=== PATIENT | male | born 1975 | race Caucasian/White ===

== ENCOUNTER 2017-04-06 20:22 | Inpatient (IN) | payer OTHER ==
[~2017-04-06] VITALS: Ht 180.3 cm; Wt 81.3 kg
--- NOTE | 2017-04-06 20:50 | NUR ---
PT BIB [facility] WITH A "HIGH" SUGAR. PT IS AMBULATORY AND AA&OX 4. PT IS ON THE MONITOR AND CONTINUOUS PULSE OX. VSS. M DEGRASSE, ACNP-BC IS AT THE BEDSIDE.
--- NOTE | 2017-04-06 20:59 | NUR ---
CALLED RT FOR ABG
--- NOTE | 2017-04-06 21:05 | NUR ---
M DEGRASSE, ACNP IS AT THE BEDSIDE.
--- NOTE | 2017-04-06 21:05 | NUR ---
XRAY DONE AT THE BEDSIDE.
[2017-04-06 21:15] LABS: ABG BASE EXCESS 0.6 mmol/L; ABG OXYGEN SATURATION 87.2 % (92.0-98.5); ABG PCO2 37.5 mmHg (35.0-45.0); ABG PH 7.433 (7.350-7.450); ABG PO2 52.8 mmHg (75.0-100.0); ABG TOTAL HEMOGLOBIN 17.2 G/dL (13.5-18.0); COHb 1.4 % (0.5-1.5); MetHb 0.4 % (0.0-1.5); O2Hb 85.6 % (94.0-97.0); SITE, ABG A-Line; VENT MODE, BG Room Air
--- NOTE | 2017-04-06 21:15 | NUR ---
[facility] LEFT. PT IS NO LONGER IN CUSTODY.
[2017-04-06 21:17] LABS: BASOPHILS % (AUTO) 0.6 % (0.0-2.0); EOSINOPHILS % (AUTO) 0.2 % (0.0-6.0); HEMATOCRIT 49 % (39-51); HEMOGLOBIN 16.5 g/dL (13.5-17.5); LYMPHOCYTES # (AUTO) 1.4 /CMM (0.8-4.8); LYMPHOCYTES % (AUTO) 17.3 % (20.0-44.0); MEAN CORPUSCULAR HEMOGLOBIN 31 PG (26.0-33.0); MEAN CORPUSCULAR HGB CONC 34 g/dl (31.0-36.0); MEAN CORPUSCULAR VOLUME 93 fL (80-96); MONOCYTES # (AUTO) 0.4 /CMM (0.1-1.30); MONOCYTES % (AUTO) 4.3 % (2.0-12.0); NEUTROPHILS # (AUTO) 6.4 /CMM (1.8-8.9); NEUTROPHILS % (AUTO) 77.6 % (43.0-81.0); PLATELET COUNT (AUTO) 194 /CMM (150-450); RDW COEFFICIENT OF VARIATION 11.9 (11.5-15.0); RED BLOOD CELL COUNT(AUTO) 5.26 MIL/uL (4.5-6.0); WHITE BLOOD COUNT (AUTO) 8.2 K/uL (4.3-11.0)
[2017-04-06] MEDS ORDERED: IV NS 0.9% 2,000 ML ONE (21:24)
[2017-04-06] MEDS ORDERED: IV SET PRIMARY 1 EA INFUS.SET MC ONE (21:24)
[2017-04-06 21:30] LABS: INR 0.95 (0.87-1.13); PROTHROMBIN TIME 9.9 SECS (9.5-12.7)
[2017-04-06] MEDS ORDERED: IV NS 0.9% 1,000 ML BAG IV ONE (21:30)
[2017-04-06 21:34] LABS: ALANINE AMINOTRANSFERASE 21 U/L (12-78); ALBUMIN 3.9 g/dL (3.4-5.0); ALKALINE PHOSPHATASE 107 U/L (46-116); ASPARTATE AMINOTRANSFERASE 9 U/L (15-37); BILIRUBIN,DIRECT 0.1 mg/dL (0.0-0.2); BILIRUBIN,TOTAL 0.7 mg/dL (0.2-1.0); CALCIUM, SERUM 9.4 mg/dL (8.5-10.1); CARBON DIOXIDE 28 mmol/L (21-32); CHLORIDE 94 mmol/L (98-107); GFR 82 mL/min (>60); POTASSIUM 4.3 mmol/L (3.5-5.1); SODIUM SERUM 132 mmol/L (136-145); TOTAL PROTEIN, SERUM 7.3 g/dL (6.4-8.2); UREA NITROGEN, BLOOD 13 mg/dL (7-18)
[2017-04-06 21:35] LABS: TROPONIN I < 0.017 ng/mL (0.00-0.056)
[2017-04-06 21:36] LABS: LACTIC ACID 1.2 mmol/L (0.4-2.0)
[2017-04-06 21:37] LABS: GLUCOSE 597 mg/dL (74-106)
--- NOTE | 2017-04-06 21:38 | NUR ---
CALLED NURSING SUP. FOR ICU BED
--- NOTE | 2017-04-06 21:46 | NUR ---
[facility] PAGED, DR. SALCEDO COMMUNITY DEVELOPMENT MANAGER
[2017-04-06 21:54] LABS: MAGNESIUM 1.9 mg/dL (1.8-2.4); PHOSPHORUS 4.4 mg/dL (2.5-4.9)
--- NOTE | 2017-04-06 22:10 | NUR ---
DR. SALCEDO IS AT THE BEDSIDE.
[2017-04-06] MEDS ORDERED: INSULIN REGULAR, HUMAN 100 UNIT/ML 10 ML VIAL ONE (22:16)
[2017-04-06] MEDS ORDERED: ONDANSETRON HCL/PF 4 MG/2 ML VIAL IVP PRN (22:30)
[2017-04-06] MEDS ORDERED: Z GUARD REMEDY 2 OZ OINT TP PRN (22:30)
[2017-04-06] MEDS ORDERED: MAG HYDROX/AL HYDROX/SIMETH 30 ML UDC PO PRN (22:30)
[2017-04-06] MEDS ORDERED: INSULIN REGULAR, HUMAN 100 UNIT/ML 10 ML VIAL SQ ONE (22:30)
[2017-04-06] MEDS: PANTOPRAZOLE 40 MG TABLET.DR PO SCH (22:30)
[2017-04-06] MEDS ORDERED: HYDROCODONE/APAP 5/325MG 1 EACH TABLET PO PRN (22:30)
[2017-04-06] MEDS ORDERED: MAGNESIUM HYDROXIDE 30 ML UDC PO PRN (22:30)
[2017-04-06] MEDS ORDERED: DEXTROSE 50%-WATER 50 ML DISP.SYRIN IV PRN (22:30)
[2017-04-06] MEDS ORDERED: ZOLPIDEM TARTRATE 5 MG TABLET PO PRN (22:30)
[2017-04-06] MEDS: BLOOD SUGAR DIAGNOSTIC 1 EACH STRIP IN SCH (22:30)
[2017-04-06] MEDS ORDERED: *INSULIN REGULAR(HUMULIN R)HUM 100 UNIT/ML VIAL SQ PRN (22:30)
[2017-04-06] MEDS ORDERED: ACETAMINOPHEN 325 MG TABLET PO PRN (22:30)
--- NOTE | 2017-04-06 22:33 | NUR ---
Candice pyle in [facility] - 04/06/17 at 2252 by [place] US FINISHED
--- NOTE | 2017-04-06 22:45 | NUR ---
PT STILL UNABLE TO GIVE A URINE SAMPLE.
--- NOTE | 2017-04-06 22:48 | NUR ---
PT LEFT FOR MS [facility]IA [facility].
--- NOTE | 2017-04-06 22:51 | NUR ---
TELE/RN NOTES RECEIVED PT. FROM ER [facility]. PT. IS AWAKE, ALERT AND ORIENTED X4. BREATHING EVEN AND UNLABORED ON ROOM AIR. NO SOB, RESPIRATORY DISTRESS OR COMPLAINTS OF PAIN NOTED. NO S/S OF HYPO/HYPERGLYCEMIA NOTED. ORIENTED PT. TO ROOM. PLACED EXTERNAL MAINTENANCE SERVICE SUPERVISOR ON PT. CURRENT RHYTHM = SINUS TACHYCARDIA HR 106. PT. WITH RIGHT EJ 20 GAUGE SALINE LOCK PRESENT, PATENT AND INTACT. BED IN LOWEST POSITION, CALL LIGHT WITHIN REACH, WILL CONTINUE TO MONITOR.
--- NOTE | 2017-04-06 23:00 | NUR ---
TELE/RN NOTES PT. 2229 HS ACCUCHECK NOT DONE AND INSULIN NOT GIVEN. PT. ACCUCHECK TAKEN AND 20 UNITS REGULAR INSULIN GIVEN IN ER AT 3. PT. 2229 PROTONIX NOT GIVEN BECAUSE ITS ORDERED AND SCHEDULED FOR 729 ACB. NO S/S OF HYPO/HYPERGLYCEMIA NOTED. WILL CONTINUE TO MONITOR.
[2017-04-07] VITALS: BP 122/74
[2017-04-07] MEDS ORDERED: IV SET PRIMARY PUMP SET 1 EA INFUS.SET MC ONE
[2017-04-07] MEDS ORDERED: IV 1/2NS 1000 ML 1,000 ML IV ONE
[2017-04-07] MEDS: IV 1/2NS 1000 ML 1,000 ML IV PRN (00:09)
[2017-04-07] MEDS ORDERED: INSULIN REGULAR, HUMAN 100 UNIT/ML 10 ML VIAL ONE (00:27)
[2017-04-07 04:00] VITALS: BP 113/63
[2017-04-07 06:50] VITALS: BP 115/68
--- NOTE | 2017-04-07 06:50 | NUR ---
TELE/RN NOTES PT. LYING IN BED RESTING. BREATHING EVEN AND UNLABORED ON ROOM AIR. NO SOB, RESPIRATORY DISTRESS OR COMPLAINTS OF PAIN NOTED. NO S/S OF HYPO/HYPERGLYCEMIA NOTED. PT. WITH EXTERNAL RN GYNECOLOGY PRESENT AND INTACT. CURRENT RHYTHM = SINUS RHYTHM HR 79. PT. WITH RIGHT EJ 20 GAUGE PERIPHERAL IV PRESENT, PATENT AND INTACT ADMINISTERING TO PT. 1/2 NS @ 150 ML/HR. ALL PT. NEEDS MET. BED IN LOWEST POSITION, CALL LIGHT WITHIN REACH, WILL ENDORSE TO DAYSHIFT NURSE FOR CONTINUITY OF CARE.
[2017-04-07 07:05] LABS: APPEARANCE,URINE CLEAR (CLEAR); BILIRUBIN,URINE NEGATIVE (NEGATIVE); BLOOD, URINE NEGATIVE Ery/uL (NEGATIVE); COLOR,URINE YELLOW (YELLOW); KETONES,URINE 2+ (NEGATIVE); LEUKOCYTE ESTERASE ,URINE NEGATIVE (NEGATIVE); NITRITE, URINE NEGATIVE (NEGATIVE); PROTEIN,URINE NEGATIVE (NEGATIVE); UGLUCOSE 3+ mg/dL (NEGATIVE); UROBILINOGEN,URINE 0.2 EU/dL (0.2)
[2017-04-07] MEDS: BLOOD SUGAR DIAGNOSTIC 1 EACH STRIP IN SCH ×4 (07:10→22:15)
[2017-04-07] MEDS: INSULIN REGULAR, HUMAN 100 UNIT/ML 3 ML VIAL SQ PRN ×3 (07:12→17:45)
[2017-04-07 07:16] LABS: BASOPHILS # (AUTO) 0.1 /CMM (0.0-0.2); BASOPHILS % (AUTO) 0.6 % (0.0-2.0); EOSINOPHILS # (AUTO) 0.1 /CMM (0.0-0.7); EOSINOPHILS % (AUTO) 1.2 % (0.0-6.0); HEMATOCRIT 44 % (39-51); HEMOGLOBIN 15.3 g/dL (13.5-17.5); LYMPHOCYTES # (AUTO) 5.3 /CMM (0.8-4.8); MEAN CORPUSCULAR HEMOGLOBIN 32 PG (26.0-33.0); MEAN CORPUSCULAR HGB CONC 35 g/dl (31.0-36.0); MEAN CORPUSCULAR VOLUME 91 fL (80-96); MONOCYTES # (AUTO) 0.7 /CMM (0.1-1.30); MONOCYTES % (AUTO) 7.3 % (2.0-12.0); NEUTROPHILS # (AUTO) 3.7 /CMM (1.8-8.9); NEUTROPHILS % (AUTO) 36.9 % (43.0-81.0); PLATELET COUNT (AUTO) 206 /CMM (150-450); RDW COEFFICIENT OF VARIATION 12.6 (11.5-15.0); RED BLOOD CELL COUNT(AUTO) 4.86 MIL/uL (4.5-6.0); WHITE BLOOD COUNT (AUTO) 9.9 K/uL (4.3-11.0)
[2017-04-07 07:20] LABS: ADD URINE CULTURE NO; BACTERIA,URINE None seen /HPF (None Seen); RBC,URINE 0-2 /HPF (0-2); WBC,URINE 0-2 /HPF (0-3)
[2017-04-07 07:21] LABS: SQUAMOUS EPITHELIAL CELL,UR 0-2 /HPF (None Seen)
[2017-04-07] MEDS: PANTOPRAZOLE 40 MG TABLET.DR PO SCH (07:30)
[2017-04-07 07:44] LABS: CALCIUM, SERUM 8.4 mg/dL (8.5-10.1); CREATININE 0.8 mg/dL (0.6-1.3); MAGNESIUM 1.7 mg/dL (1.8-2.4); PHOSPHORUS 4.2 mg/dL (2.5-4.9); POTASSIUM 3.1 mmol/L (3.5-5.1)
--- NOTE | 2017-04-07 07:50 | NUR ---
MS RN RECEIVED ON BED,AWAKE,ALERT,ORIENTED X4,NOT IN ANY FORM OF DISTRESS, RESPIRATIONS EVEN AND UNLABORED,NO SOB NOTED, LUNGS ARE CLEAR,ABDOMEN SOFT,POSITIVE BOWEL SOUNDS,DENIES PAIN AT THIS TIME, WILL MONITOR PATIENT'S CONDITION.
[2017-04-07] MEDS ORDERED: INSU100V7 SQ (08:06)
[2017-04-07] MEDS ORDERED: INSU100C10 SQ (08:06)
--- NOTE | 2017-04-07 10:00 | NUR ---
MS RN BREAKFAST SERVED,DUE MEDS WAS REFUSED BY PATIENT, JUST WANTS TO SLEEP AT THIS TIME.
[2017-04-07] MEDS ORDERED: POTASSIUM CHLORIDE 20 MEQ TAB.PRT.SR PO ONE ×2 (11:00→18:00)
--- NOTE | 2017-04-07 11:30 | NUR ---
MS RN WAS SEEN BY IVON Rogers/ ORDERS MADE AND CARRIED OUT.
[2017-04-07] MEDS ORDERED: SECONDARY IV SET 1 EA INFUS.SET MC ONE (15:14)
[2017-04-07] MEDS: Magnesium 1GM/D5W 100ML PREMIX 100 ML IV SCH ×2 (15:18→17:35)
[2017-04-07] MEDS: BETAMETHASONE DIP 0.05% CREAM 15 GM TUBE TP SCH ×2 (15:27→17:35)
[2017-04-07 16:00] VITALS: BP 112/66
--- NOTE | 2017-04-07 18:50 | NUR ---
MS RN ON BED, NO DISTRESS NOTED ,ALL NEEDS ATTENDED.
--- NOTE | 2017-04-07 19:20 | NUR ---
MS RN NOTES RECEIVED PT IN BED. RESTING COMFORTABLY AT THIS TIME. AROUSES EASILY. VERBALLY RESPONSIVE. NO DISTRESS, NO SOB NOTED AT THIS TIME. IV SITE ON RIGHT EJ INTACT AND PATENT. NO S/S OF INFILTRATION NOTED. DENIES ANY PAIN OR DISCOMFORT AT THIS TIME. ALL NEEDS ATTENDED. CALL LIGHT WITHIN REACH. WILL CONTINUE TO MONITOR.
[2017-04-07 20:00] VITALS: BP 104/66
[2017-04-07 22:00] VITALS: BP 125/75
[2017-04-07] MEDS ORDERED: INSULIN DETEMIR 100 UNIT/ML CARTRIDGE SQ SCH (22:00)
[2017-04-08] MEDS: IV 1/2NS 1000 ML 1,000 ML IV PRN (04:02)
[2017-04-08] MEDS: BLOOD SUGAR DIAGNOSTIC 1 EACH STRIP IN SCH ×2 (05:46→11:26)
[2017-04-08] MEDS: INSULIN REGULAR, HUMAN 100 UNIT/ML 3 ML VIAL SQ PRN ×2 (05:52→11:29)
--- NOTE | 2017-04-08 06:30 | NUR ---
MS RN NOTES PT IN BED, ASLEEP AT THIS TIME, AROUSES EASILY. VERBALLY RESPONSIVE. NO DISTRESS, NO SOB NOTED AT THIS TIME. IV SITE ON RIGHT EJ INTACT AND PATENT. NO S/S OF INFILTRATION NOTED. DENIES ANY PAIN OR DISCOMFORT AT THIS TIME. NO S/S OF HYPO/ HYPERGLYCEMIA NOTED. ALL NEEDS ATTENDED. CALL LIGHT WITHIN REACH. WILL ENDORSE TO NEXT SHIFT FOR LASHONDA.
[2017-04-08 07:27] LABS: CALCIUM, SERUM 8.6 mg/dL (8.5-10.1); CREATININE 0.8 mg/dL (0.6-1.3); MAGNESIUM 1.9 mg/dL (1.8-2.4); POTASSIUM 3.3 mmol/L (3.5-5.1)
--- NOTE | 2017-04-08 07:56 | NUR ---
RN MS NOTES RECEIVED PATIENT IN BED, SLEEPING, IN NO DISTRESS, RESPIRATIONS EVEN AND UNLABORED, NO SOB NOTED. RIGHT EJ PATENT NO S/S OF INFILTRATION NOTED. ALL NEEDS MET, KEPT CLEAN AND DRY, CALL LIGHT WITHIN REACH.
[2017-04-08 08:00] VITALS: BP 107/72
[2017-04-08] MEDS: PANTOPRAZOLE 40 MG TABLET.DR PO SCH (09:26)
[2017-04-08] MEDS: BETAMETHASONE DIP 0.05% CREAM 15 GM TUBE TP SCH (09:27)
[2017-04-08] MEDS ORDERED: POTASSIUM CHLORIDE 20 MEQ TAB.PRT.SR PO SCH (11:00)
--- NOTE | 2017-04-08 15:00 | NUR ---
RN MS NOTES PATIENT LEFT AMBULATING, VIA PRIVATE CAR, ACCOMPANIED BY HIS FRIEND. NO APPARENT DISTRESS NOTED, DENIES SOB, NO C/O PAIN. DISCHARGE INSTRUCTIONS GIVEN AND SIGNED BY PATIENT, EDUCATION PROVIDED. IV LINE DISCONTINUED, BELONGING LIST SIGNED, ALL BELONGINGS WITH PATIENT. NEW PRESCRIPTION GIVEN TO PATIENT. ALL NEEDS MET, KEPT CLEAN AND DRY.
== END 2017-04-08 15:00 | disposition home or self-care (01) | DRG 638 ==
LOC: ER 20:25 → TELE 22:15 → MED 04-07 08:42
PROVIDERS: ADMIT Internal Medicine; ATTEND Internal Medicine
DX: E11.65 Type 2 diabetes mellitus with hyperglycemia (principal); E87.1 Hypo-osmolality and hyponatremia; Z91.19 Patient's noncompliance with other medical treatment and regimen; L40.9 Psoriasis, unspecified; Z79.4 Long term (current) use of insulin; Z87.891 Personal history of nicotine dependence; R22.2 Localized swelling, mass and lump, trunk
CPT/HCPCS: 36415; 36600; 71010-TC; 76882; 80048-TC; 80076-TC; 81000-TC; 82010-TC; 82962-TC; 83605-TC; 83735-TC; 84100-TC; 84484-TC; 85025-TC; 85730-TC; 87040-TC; 87081-TC; 87086-TC; A4606; J1815; J3475; J3490; J7030; Z7610